=== PATIENT | female | born 1990 | race Caucasian/White ===

== ENCOUNTER 2019-06-23 15:53 | Emergency (ER) | payer OTHER ==
[~2019-06-23] VITALS: Ht 154.9 cm; Wt 49.4 kg
[2019-06-23 15:56] VITALS: BP 115/77
--- NOTE | 2019-06-23 16:16 | NUR ---
Assumed patient care, nursing assessment completed. Patient endorsing upper left back/shoulder pain. No PMH.
[2019-06-23] MEDS ORDERED: IBUPROFEN 600 MG TAB PO ONE (16:35)
[2019-06-23 17:52] VITALS: BP 108/62
--- NOTE | 2019-06-23 17:52 | NUR ---
Patient discharged with v/s stable. Written and verbal after care instructions given and explained. Patient alert, oriented and verbalized understanding of instructions. Ambulatory with steady gait. All questions addressed prior to discharge. ID band removed. Patient advised to follow up with PMD. Rx of Flexeril 10mg and Ibuprofen 600mg given. Patient educated on indication of medication including possible reaction and side effects. Opportunity to ask questions provided and answered.
== END 2019-06-23 17:50 | disposition home or self-care (01) ==
LOC: MED 15:53
DX: S39.012A Strain of muscle, fascia and tendon of lower back, initial encounter (principal); F41.1 Generalized anxiety disorder; X58.XXXA Exposure to other specified factors, initial encounter; Y93.89 Activity, other specified; Y92.89 Other specified places as the place of occurrence of the external cause; Y99.8 Other external cause status
CPT/HCPCS: 71045; 93005; 99283